=== PATIENT | male | born 1985 | race Caucasian/White ===

== ENCOUNTER → 2023-11-02 16:57 | Outpatient (REF) | payer OTHER, SELFPAY | LOC: HWRAD 16:57 | PROVIDERS: ATTENDING PHYSICIAN Chiropractor; FAMILY PHYSICIAN Nurse Practitioner Adult Health | DX: M54.12 Radiculopathy, cervical region (principal); M62.40 Contracture of muscle, unspecified site; M99.01 Segmental and somatic dysfunction of cervical region; M99.03 Segmental and somatic dysfunction of lumbar region; M53.2X7 Spinal instabilities, lumbosacral region | CPT/HCPCS: 72050; 72110 ==

== ENCOUNTER → 2024-03-27 07:27 | Outpatient (REF) | payer OTHER, SELFPAY | LOC: HWRAD 07:27 | PROVIDERS: ATTENDING PHYSICIAN Nurse Practitioner Adult Health | DX: R10.11 Right upper quadrant pain (principal) | CPT/HCPCS: 76700 ==

== ENCOUNTER 2024-12-26 06:20 | Day surgery (SDC) | payer OTHER, SELFPAY ==
[2024-12-26 08:14] LABS: Glucose - Point of Care 98 mg/dl (70-99)
== END 2024-12-26 10:06 | disposition home or self-care (01) ==
LOC: GI 06:20
PROVIDERS: ATTENDING PHYSICIAN Internal Medicine Gastroenterology
DX: K21.9 Gastro-esophageal reflux disease without esophagitis (principal); Z80.0 Family history of malignant neoplasm of digestive organs; K57.30 Diverticulosis of large intestine without perforation or abscess without bleeding; K64.8 Other hemorrhoids; K31.7 Polyp of stomach and duodenum; K29.70 Gastritis, unspecified, without bleeding; K63.5 Polyp of colon
CPT/HCPCS: 45380; 43239; 82962; 88305; 88342